=== PATIENT | female | born 1970 | race Caucasian/White ===

== ENCOUNTER 2016-03-23 11:35 | Emergency (ER) | payer MEDICAID ==
[2016-03-23 11:49] VITALS: BP 132/85
--- OUTSIDE RECORDS SUMMARY | 2016-03-23 13:33 | XMS REPORT | Continuity of Care Document ---
:1970 Author Organization [facility] [place] [address] Care Team Providers Name Role Phone Eunice Rincon Primary Care Provider [phone] Source Comments This disclosure is being made pursuant to the [employer] program and maynot contain all information available regarding this patient.[facility] Active Allergies and Adverse Reactions Allergen Noted Date Severity Reactions Comments Asa 12/28/2011 High Swelling Pcn 12/28/2011 Other (See Comments) Pt unsure of reaction. Has been told as a child she was allergic Current Medications Be aware that medications may not be up to date as of this document. Alwaysverify current medications with the patient. Prescription Sig. Disp. Refills Start Date End Date Status venlafaxine HCl Take 225 mg by Active (EFFEXOR-XR) 150 MG 24 mouth daily. hr capsule VYVANSE 40 MG capsule 1 tablet daily. 0 09/20/2014 Active PROVENTIL HFA 108 (90 INHALE 2 PUFFS 6.7 g 2 11/09/2014 Active BASE) MCG/ACT inhaler EVERY 4 TO 6 HOURS NEEDED buPROPion (WELLBUTRIN Take 150 mg by 08/04/2013 Active XL) 150 MG 24 hr tablet mouth daily. oxybutynin (DITROPAN) 5 Take 1 tablet by 30 tablet 0 03/13/2015 Active MG tablet mouth nightly. Active Problems Problem Noted Date Encounter for gynecological examination without abnormal finding 03/13/2015 Urge incontinence of urine 03/13/2015 Stool incontinence 03/13/2015 Diarrhea 03/13/2015 Most Recent Encounters Date Type Specialty Providers Description 01/24/2016 Data Import Immunizations Name Dates Previously Given Next Due Influenza Split 12/06/2013 Td, preservative free 12/06/2013 Tdap 10/04/2013 Social History Tobacco Use Types Packs/Day Years Used Date Former Smoker Cigarettes Quit: 02/26/2011 Smokeless Tobacco: Never Used Alcohol Use Drinks/Week oz/Week Comments Yes Alcoholic Drinks/day: Alcohol Use: social drinker Last Filed Vital Signs Vital Sign Reading Time Taken Blood Pressure 112/76 03/13/2015 9:03 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 Pulse 88 03/13/2015 9:03 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 Temperature 37.1 C (98.7 F) 03/13/2015 9:03 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 Respiratory Rate 16 03/13/2015 9:03 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 Height 1.676 m (5' 6") 03/13/2015 9:03 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 Weight 76.476 kg (168 lb 9.6 oz) 03/13/2015 9:03 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 Body Mass Index 27.23 03/13/2015 9:03 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 Oxygen Saturation 96% 01/20/2014 9:19 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 Plan of Care Health Maintenance Due Date Last Done Comments Influenza Immunization (#1) 2015 12/06/2013 Pap Smear 03/13/2018 03/13/2015, 01/09/2014 Tetanus/Pertussis (2 - Td) 12/07/2023 12/06/2013, 10/04/2013 Results from Last 3 Months Not on file
--- OUTSIDE RECORDS SUMMARY | 2016-03-23 13:33 | XMS REPORT | Continuity of Care Document ---
:1970 Author Organization [facility] ([facility]) Address [place] [address] Phone [phone] Care Team Providers Name Role Phone Provider, No-Primary Care Primary Care Provider Unavailable Source Comments This disclosure is being made pursuant to the Care Everywhere program, applicable federal and state laws, and may not contain all informaitonavailable regarding this patient.[facility] ([facility]) Active Allergies and Adverse Reactions Allergen Noted Date Severity Reactions Comments Aspirin 08/04/2012 Respiratory Distress,Urticaria (Hives) Penicillin G 08/04/2012 Urticaria (Hives) Current Medications Prescription Sig. Disp. Refills Start Date End Date Status naproxen sodium (ALEVE) Take 220 mg by Active 220 mg tablet mouth 2 times daily buPROPion (WELLBUTRIN Take 150 mg by Suspended XL) 150 mg extended mouth Every release tablet 24 hour morning. venlafaxine (EFFEXOR XR) Take 150 mg by Suspended 150 mg XR capsule mouth daily. albuterol 90 Use 2 Puffs by Suspended mcg/Actuation inhaler inhalation every 6 hours as needed. lisdexamfetamine Take 40 mg by Suspended (VYVANSE) 40 mg capsule mouth daily. Active Problems Problem Noted Date Right hand pain 04/25/2014 Last Assessment & Plan: Diagnostic ultrasound to evaluate for retained suture, suture abscess, scar tissue or fluid infection. 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 Encounter related to worker's compensation claim 10/04/2013 RIGHT hand 2014 Overview: Stab her hand while working at [employer]. Laceration/punture wound in mind- thenar area sutured on 10/04/2013. MMI 10/13/2013, no restrictions as of 10/16/2013. Last Assessment & Plan: Cony Vernon may work without restrictions for her right hand. Ulnar neuropathy at elbow of left upper extremity 12/09/2013 Neck pain 09/10/2012 Shoulder pain, left 08/04/2012 Depressive disorder, not elsewhere classified 08/04/2012 Immunizations Name Dates Previously Given Next Due Tdap 08/04/2012 Social History Tobacco Use Types Packs/Day Years Used Date Former Smoker Cigarettes 0.1 10 Quit: 03/06/2012 Smokeless Tobacco: Never Used Tobacco Cessation:Counseling Given: Yes Comments: Alcohol Use Drinks/Week oz/Week Comments Yes rarely Last Filed Vital Signs Vital Sign Reading Time Taken Blood Pressure 127/76 04/21/2014 1:34 PM CDT Pulse 85 04/21/2014 1:34 PM CDT Temperature 37.1 C (98.8 F) 04/21/2014 1:34 PM CDT Respiratory Rate 16 03/23/2014 8:00 

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
[2016-03-23 13:36] LABS: Hemoglobin 14.3 gm/dL (12.5-16.0); Mean Cell Volume 92.7 fl (78-100); Mean Corpuscular Hemoglobin 31.6 pg (27-31); Neutrophil % 76.9 % (42-75.0); Platelet Count 226 K/mm3 (150-450); Red Blood Count 4.53 M/mm3 (4.2-5.4); Red Cell Distribution Width 11.9 % (11.5-14.0); White Blood Count 9.1 K/mm3 (4.0-10.5)
[2016-03-23 13:48] LABS: Albumin * 4.1 gm/dl (3.4-5.0); Anion Gap 10.8 mmol/L (6.8-13.8); BUN/Creatinine Ratio 9.2 (9.0-21.6); Bilirubin, Total 0.7 mg/dL (0.0-1.1); Ca. Corrected For Albumin 8.8 mg/dL (8.4-10.2); Calcium * 9.2 mg/dL (7.9-10.9); Carbon Dioxide 30.7 mmol/L (24-32.6); Potassium 3.5 mmol/L (3.4-4.6)
[2016-03-23 14:44] LABS: Urine Appearance Clear; Urine Bilirubin Negative (NEGATIVE); Urine Blood Negative /ul (NEGATIVE); Urine Color Yellow; Urine Ketone Negative (NEGATIVE); Urine Nitrite Negative (NEGATIVE); Urine Protein Negative (NEGATIVE); Urine Specific Gravity 1.005 SP.GR. (1.005-1.010); Urine Urobilinogen Normal (NORMAL)
[2016-03-23 14:45] LABS: Urine Bacteria None Seen; Urine RBC None Seen /hpf (0-5); Urine WBC 0-5 /hpf (0-5)
== END 2016-03-23 16:05 | disposition home or self-care (01) ==
LOC: ER 11:35
DX: K52.9 Noninfective gastroenteritis and colitis, unspecified (principal); J40 Bronchitis, not specified as acute or chronic; F90.9 Attention-deficit hyperactivity disorder, unspecified type; F41.9 Anxiety disorder, unspecified

== ENCOUNTER 2016-06-16 17:21 | Emergency (ER) | payer MEDICAID ==
[2016-06-16 17:47] LABS: Urine Bilirubin Negative (NEGATIVE); Urine Blood Negative /ul (NEGATIVE); Urine Ketone Negative (NEGATIVE); Urine Nitrite Negative (NEGATIVE); Urine Protein Negative (NEGATIVE); Urine Specific Gravity <=1.005 SP.GR. (1.005-1.010); Urine Urobilinogen Normal (NORMAL)
[2016-06-16] MEDS ORDERED: NORMAL SALINE 1,000 ML IV ONE (18:03)
[2016-06-16 18:04] LABS: Urine Appearance Clear; Urine Bacteria 1+; Urine Color Pale Yellow; Urine RBC None Seen /hpf (0-5); Urine WBC None Seen /hpf (0-5)
[2016-06-16] MEDS ORDERED: MORPHINE SULFATE 4 MG/ML SYRG ONE ×2 (18:05→20:35)
--- OUTSIDE RECORDS SUMMARY | 2016-06-16 18:08 | XMS REPORT | Continuity of Care Document ---
:1970 Author Organization [facility] [place] [address] Care Team Providers Name Role Phone Eunice Rincon Primary Care Provider [phone] Source Comments This disclosure is being made pursuant to the [employer] program and maynot contain all information available regarding this patient.[facility] Active Allergies and Adverse Reactions Allergen Noted [...] urine 03/13/2015 Stool incontinence 03/13/2015 Diarrhea 03/13/2015 Immunizations Name Dates Previously Given Next Due Influenza Split 12/06/2013 Td, preservative free 12/06/2013 Tdap 10/04/2013 Social History Tobacco Use Types Packs/Day Years Used Date Former Smoker Cigarettes Quit: 02/26/2011 Smokeless Tobacco: Never Used Alcohol Use Drinks/Week oz/Week Comments Yes Alcoholic Drinks/day: Alcohol Use: social drinker Last Filed Vital Signs Vital Sign Reading Time Taken Blood Pressure 112/76 03/13/2015 9:03 AM 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 Pulse 88 03/13/2015 9:03 AM 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 Temperature 37.1 C (98.7 F) 03/13/2015 9:03 AM 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 Respiratory Rate 16 03/13/2015 9:03 AM 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 Height 1.676 m (5' 6") 03/13/2015 9:03 AM 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 Weight 76.476 kg (168 lb 9.6 oz) 03/13/2015 9:03 AM 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 Body Mass Index 27.23 03/13/2015 9:03 AM 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 Oxygen Saturation 96% 01/20/2014 9:19 AM 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 Plan of Care Health Maintenance Due Date Last Done Comments Influenza Immunization (#1) 2015 12/06/2013 Pap Smear 03/13/2018 03/13/2015, 01/09/2014 Tetanus/Pertussis (2 - Td) 12/07/2023 12/06/2013, 10/04/2013 Results from Last 3 Months Not on file
--- OUTSIDE RECORDS SUMMARY | 2016-06-16 18:08 | XMS REPORT | Continuity of Care Document ---
:1970 Author Organization [facility] ([facility]) [place] [address] Phone [phone] Care Team Providers Name Role Phone Provider, No-Primary Care Primary Care Provider Unavailable Source Comments This disclosure is being made pursuant to the Care Everywhere program, applicable federal and state laws, and may not contain all informaitonavailable regarding this patient.[facility] ([facility]) Active Allergies and Adverse Reactions Allergen Noted [...] Overview: Stab her hand while working at [employer]. 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
[2016-06-16] MEDS: MORPHINE SULFATE 4 MG/ML SYRG IV ONE ×2 (18:16→20:38)
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
[2016-06-16 18:20] LABS: Hematocrit 40.7 % (37.0-47.0); Hemoglobin 13.9 gm/dL (12.5-16.0); Mean Cell Volume 90.2 fl (78-100); Mean Corpuscular Hemoglobin 30.8 pg (27-31); Mean Corpuscular Hgb Conc 34.2 g/dl (32-36); Mean Platelet Volume 10.5 fl (6.0-9.5); Neutrophil # 6.7 K/mm3 (1.3-6.0); Neutrophil % 69.9 % (42-75.0); Platelet Count 230 K/mm3 (150-450); Red Blood Count 4.51 M/mm3 (4.2-5.4); White Blood Count 9.6 K/mm3 (4.0-10.5)
[2016-06-16 18:29] LABS: Albumin * 4.3 gm/dl (3.4-5.0); Anion Gap 13.7 mmol/L (6.8-13.8); BUN/Creatinine Ratio 4.8 (9.0-21.6); Bilirubin, Total 1.2 mg/dL (0.0-1.1); Ca. Corrected For Albumin 8.6 mg/dL (8.4-10.2); Calcium * 9.2 mg/dL (7.9-10.9); Carbon Dioxide 29.4 mmol/L (24-32.6); Potassium 3.1 mmol/L (3.4-4.6)
[2016-06-16] MEDS ORDERED: DIATRIZOATE MEGLU/DIATRIZO SOD 30 ML BTL PO ONE (18:34)
[2016-06-16] MEDS ORDERED: DIATRIZOATE MEGLU/DIATRIZO SOD 30 ML BTL ONE (18:36)
[2016-06-16] MEDS ORDERED: MORPHINE SULFATE 2 MG/ML DISP.SYRIN IV ONE (20:35)
[2016-06-16] MEDS ORDERED: ONDANSETRON HCL/PF 2 MG/ML VIAL ONE (21:08)
[2016-06-16] MEDS ORDERED: ONDANSETRON HCL/PF 2 MG/ML VIAL IV ONE (21:09)
[2016-06-16] MEDS ORDERED: DICYCLOMINE HCL 10 MG CAPSULE PO ONE (21:19)
[2016-06-16] MEDS ORDERED: DICYCLOMINE HCL 20 MG TABLET ONE ×2 (21:35→21:44)
[2016-06-16 21:39] VITALS: BP 107/69
== END 2016-06-16 22:33 | disposition home or self-care (01) ==
LOC: ER 17:21
DX: R10.31 Right lower quadrant pain (principal)

== ENCOUNTER 2016-10-06 15:57 | Emergency (ER) | payer MEDICAID ==
[2016-10-06] MEDS ORDERED: DOXYCYCLINE HYCLATE 100 MG TABLET PO ONE (17:02)
[2016-10-06] MEDS ORDERED: AZITHROMYCIN 250 MG TABLET PO ONE (17:04)
[2016-10-06] MEDS ORDERED: metroNIDAZOLE 500 MG TABLET PO ONE (17:11)
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
[2016-10-06] MEDS ORDERED: metroNIDAZOLE 500 MG TABLET ONE (17:29)
[2016-10-06] MEDS ORDERED: AZITHROMYCIN 250 MG TABLET ONE (17:29)
[2016-10-06] MEDS ORDERED: DOXYCYCLINE HYCLATE 100 MG TABLET ONE (17:29)
[2016-10-06 17:38] LABS: Urine Bilirubin Negative (NEGATIVE); Urine Blood Negative /ul (NEGATIVE); Urine Ketone Negative (NEGATIVE); Urine Nitrite Negative (NEGATIVE); Urine Protein Negative (NEGATIVE); Urine Specific Gravity <=1.005 SP.GR. (1.005-1.010); Urine Urobilinogen Normal (NORMAL); Urine pH 6.5 pH (5.0-7.0)
[2016-10-06 17:47] LABS: Urine Appearance Clear; Urine Bacteria 1+; Urine Color Yellow; Urine RBC None Seen /hpf (0-5); Urine WBC None Seen /hpf (0-5)
[2016-10-06 17:49] VITALS: BP 149/89
== END 2016-10-06 18:00 | disposition home or self-care (01) ==
LOC: ER 15:57
DX: N76.0 Acute vaginitis (principal); F90.9 Attention-deficit hyperactivity disorder, unspecified type; F41.9 Anxiety disorder, unspecified

== ENCOUNTER 2016-11-07 08:36 | Day surgery (SDC) | payer MEDICAID ==
[~2016-11-07 08:36] MED LIST: RINGER'S SOLUTION,LACTATED 1,000 ML IV PRN; ceFAZolin SODIUM 1 GM VIAL IV PRN
[2016-11-07] MEDS ORDERED: RINGER'S SOLUTION,LACTATED 1,000 ML IV ONE ×2 (09:16→10:05)
--- NOTE | 2016-11-07 10:07 | OR ---
Operative Report - Dictated Report Narrative: Date: 11/07/2016 Physician: Enmanuel Guillaume M.D. 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 Vernon Is a 46 year-old female who has been followed in my clinic with complaints of shoulder pain consistent acromioclavicular arthrosis and impingement. Physical exam and diagnostic imaging were consistent with his complaints and concern for isolated acromial clavicular pathology. Conservative measures have failed including, but not limited to, passage of time , activity modification, medications, physical therapy/home exercise program, or injections. The risks, benefits, and alternatives were discussed in clinic. The risks being , bleeding, infection, blood clots, nerve, tendon, ligament, blood vessel injury, persistent pain, arthrosis, stiffness, need for prolonged therapy, need for additional procedures, and persistent symptoms. Consent was obtained in the clinic. Procedure: After marking the correct extremity in the preoperative holding area, a timeout was performed in the operating room. IV antibiotics consisting of Ancef were administered prior to the procedure. A general followed by regional anesthetic was induced by the nurse humanities coordinator per my request. This was in the supine position, then the patient was transitioned to a beachchair position with all bony prominences well-padded, head in neutral, the nonoperative arm well supported, and the legs padded with SCDs in place. The operative shoulder was then prepped and draped in a standard sterile fashion. Attention was turned to the distal clavicle. A longitudinal incision was made over the acromioclavicular joint. This was sharply dissected down to the chromic clavicular capsule. Cautery was utilized for hemostasis. A longitudinal capsulotomy was made and elevated off the anterior posterior aspects of the distal clavicle. There is notable hypertrophic bone and loss of joint space between the acromion and clavicle. Protecting the surrounding soft tissues, an oscillating saw was utilized in order to resect approximately 7-10 mm of bone from the distal clavicle. The remaining clavicle was stable after removing this. The shoulders place a range of motion and showed no remaining impingement between the acromion and the clavicle. Wounds were then thoroughly irrigated. The capsule was closed with interrupted 0 Vicryl to subcutaneous tissue with 3-0 Monocryl. Skin was closed benzoin and Steri-Strips. A dressing consisting of benzoin and Tegaderm was applied. All sponge, needle, blade, and instrument counts were correct prior to closing the wounds. The patient was awoken and transferred to the postanesthesia care unit in stable condition.
[2016-11-07 13:01] VITALS: BP 129/85
== END 2016-11-07 08:37 | disposition home or self-care (01) ==
LOC: AMB 08:36
PROVIDERS: ATTEND Orthopaedic Surgery
PROC: 0PBB0ZZ Excision of Left Clavicle, Open Approach (ICD-10-PCS; principal; 2016-11-07 10:25)
DX: M19.012 Primary osteoarthritis, left shoulder (principal); F41.9 Anxiety disorder, unspecified; M75.42 Impingement syndrome of left shoulder; F31.9 Bipolar disorder, unspecified; F17.210 Nicotine dependence, cigarettes, uncomplicated; Z68.23 Body mass index [BMI] 23.0-23.9, adult

== ENCOUNTER 2016-12-22 14:16 | Emergency (ER) | payer MEDICAID ==
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
[2016-12-22 16:15] VITALS: BP 121/82
== END 2016-12-22 15:32 | disposition home or self-care (01) ==
LOC: ER 14:16
DX: J01.90 Acute sinusitis, unspecified (principal); H66.001 Acute suppurative otitis media without spontaneous rupture of ear drum, right ear; F90.9 Attention-deficit hyperactivity disorder, unspecified type; F17.200 Nicotine dependence, unspecified, uncomplicated

== ENCOUNTER 2017-02-23 15:48 | Emergency (ER) | payer MEDICAID ==
[2017-02-23] MEDS ORDERED: ASPIRIN 81 MG TAB.CHEW PO ONE (16:00)
[2017-02-23] MEDS ORDERED: LORazepam 2 MG/ML DISP.SYRIN IV ONE ×2 (16:03→16:59)
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
[2017-02-23] MEDS ORDERED: LORazepam 2 MG/ML DISP.SYRIN ONE ×2 (16:11→17:00)
[2017-02-23 16:18] LABS: Hematocrit 40.9 % (37.0-47.0); Hemoglobin 14.4 gm/dL (12.5-16.0); Mean Cell Volume 92.1 fl (78-100); Mean Corpuscular Hemoglobin 32.4 pg (27-31); Mean Corpuscular Hgb Conc 35.2 g/dl (32-36); Mean Platelet Volume 10.3 fl (6.0-9.5); Neutrophil # 11.5 K/mm3 (1.3-6.0); Platelet Count 209 K/mm3 (150-450); Red Blood Count 4.44 M/mm3 (4.2-5.4); Red Cell Distribution Width 12.1 % (11.5-14.0); White Blood Count 14.4 K/mm3 (4.0-10.5)
[2017-02-23 16:28] LABS: Prothrombin Time (Patient) 10.2 Seconds (9.0-11.0)
[2017-02-23 16:33] LABS: INR 1.02 INR (0.90-1.10); Partial Thrombolplastin Time 26.2 Seconds (24-32)
[2017-02-23 16:35] LABS: Troponin I Less than 0.017 ng/ml (0.00-0.10)
[2017-02-23 16:40] LABS: ALT 18 U/L (19-67); AST 14 U/L (0-48); Albumin * 3.6 gm/dl (3.4-5.0); Alkaline Phosphatase * 82 U/L (50-170); Anion Gap 9.5 mmol/L (6.8-13.8); Bilirubin, Total 1.4 mg/dL (0.0-1.1); Ca. Corrected For Albumin 8.9 mg/dL (8.4-10.2); Calcium * 8.9 mg/dL (7.9-10.9); Carbon Dioxide 30.9 mmol/L (24-32.6); Chloride 99 mmol/L (97-106); Glucose * 157 mg/dL (70-110); Potassium 3.4 mmol/L (3.4-4.6); Sodium 136 mmol/L (132-142); TSH * 0.574 uIU/mL (0.358-3.74); Total Protein 7.4 gm/dL (6.2-8.2)
[2017-02-23 16:50] LABS: BUN/Creatinine Ratio 13.3 (9.0-21.6); Blood Urea Nitrogen 10 mg/dL (3-23)
[2017-02-23 17:35] LABS: Urine Bilirubin 1 mg/dl (NEGATIVE); Urine Blood Negative /ul (NEGATIVE); Urine Ketone 5 mg/dL (NEGATIVE); Urine Nitrite Negative (NEGATIVE); Urine Protein 100 mg/dL (NEGATIVE); Urine Specific Gravity >=1.030 SP.GR. (1.005-1.010); Urine Urobilinogen Normal (NORMAL); Urine pH 5.5 pH (5.0-7.0)
[2017-02-23 17:45] LABS: Cocaine Ur Negative (NEGATIVE); Urine Barbiturate Negative (NEGATIVE); Urine Benzodiazepines Negative (NEGATIVE); Urine Opiates Negative (NEGATIVE); Urine PCP Negative (NEGATIVE)
[2017-02-23 17:47] LABS: Urine THC Positive (NEGATIVE)
[2017-02-23 17:48] LABS: Urine Appearance Clear; Urine Bacteria 1+; Urine Color Amber; Urine RBC None Seen /hpf (0-5); Urine WBC None Seen /hpf (0-5)
[2017-02-23] MEDS ORDERED: AZITHROMYCIN 250 MG TABLET PO ONE (19:07)
[2017-02-23] MEDS ORDERED: DOXYCYCLINE HYCLATE 100 MG TABLET PO ONE (19:07)
[2017-02-23] MEDS ORDERED: DIPHTH,PERTUSS(ACELL),TET VAC 0.5 ML VIAL IM ONE ×2 (19:13→19:24)
[2017-02-23] MEDS ORDERED: AZITHROMYCIN 250 MG TABLET ONE (19:22)
[2017-02-23] MEDS ORDERED: DOXYCYCLINE HYCLATE 100 MG TABLET ONE (19:23)
[2017-02-23 19:50] VITALS: BP 110/88
== END 2017-02-23 20:57 | disposition home or self-care (01) ==
LOC: ER 15:48
DX: Z23 Encounter for immunization; F31.9 Bipolar disorder, unspecified; F90.9 Attention-deficit hyperactivity disorder, unspecified type; F41.1 Generalized anxiety disorder; T74.21XA Adult sexual abuse, confirmed, initial encounter